=== PATIENT | female | born 2000 | race Caucasian/White ===

== ENCOUNTER 2024-07-14 04:00 | Emergency (ER) | payer MEDICAID, SELFPAY ==
[2024-07-14 04:01] VITALS: BMI 24.5
[2024-07-14 04:08] VITALS: BP 134/78; PULSE 116; RESP 18; TEMP 36.6; O2SAT 96
--- NOTE | 2024-07-14 04:15 | XR_ITS ---
EXAMINATION: Ankle, right 3 views . Technique: Ankle AP, oblique, lateral 3 views Date and time of exam: July 14, 2024 0422 hrs. Indications: Ground-level fall today. Findings: No fracture or ankle dislocation No foreign body Impression: No fracture or dislocation
--- NOTE | 2024-07-14 04:15 | XR_ITS ---
Examination: Right knee 4 views Technique: AP oblique lateral axial right knee 4 views Exam date and time: July 15, 2023 0422 hrs. Indications: Ground-level fall today. Findings: No acute fracture No foreign body Minimal chronic lateral subluxation of the patella Impression: No acute fracture
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
[2024-07-14] MEDS: IBUPROFEN TAB 400 MG TABLET 800 MG PO (04:34)
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
== END 2024-07-14 05:21 | disposition home or self-care (01) ==
PROVIDERS: Emergency Provider Emergency Medicine; PCP Family Medicine
DX: S93.401A Sprain of unspecified ligament of right ankle, initial encounter (principal); M25.561 Pain in right knee; X50.9XXA Other and unspecified overexertion or strenuous movements or postures, initial encounter
CPT/HCPCS: 73562; 73610; 99283; A9270

== ENCOUNTER 2025-02-23 19:01 | Emergency (ER) | payer MEDICAID, SELFPAY ==
[2025-02-23 19:02] VITALS: BMI 23.6
--- NOTE | 2025-02-23 19:08 | XR_ITS ---
Examination: Complete OB ultrasound, less than 14 weeks, transabdominal Date and time of exam: February 23, 2025, 1955 hours INDICATION: Vaginal bleeding and pelvic pain beginning 3 days ago Technique: Obstetrical ultrasound images less than 14 weeks performed via transabdominal imaging Findings: Uterus 7.8 cm no uterine mass or intrauterine gestation Endometrial stripe 1.3 cm Right ovary 2.7 cm arterial flow Left ovary 3.6 cm arterial flow 21 mm x 14 mm cyst IMPRESSION: No uterine mass or intrauterine gestation Left ovarian cyst 21 x 13 x 14 mm
[2025-02-23] MEDS: ACETAMINOPHEN 325 MG TABLET 650 MG PO (19:26)
[2025-02-23 19:50] VITALS: BP 124/79; PULSE 97; RESP 18; TEMP 37.1; O2SAT 99
[2025-02-23 20:10] LABS: Collection Type, Urine Clean Catch
[2025-02-23 20:22] LABS: Amorphous Crystals,Urine Present (Absent); Bacteria,Urine Rare; Bilirubin,Urine Negative (Negative); Blood,Urine Negative (Negative); Clarity,Urine Clear (Clear/Hazy); Color,Urine Lt-Yellow (Lt Yel-Yel); Culture Indicated,Urine Not Indicated; Glucose, Urine Negative (Negative); Ketones,Urine Negative (Negative); Leukocyte Esterase,Urine Negative (Negative); Nitrite,Urine Negative (Negative); PH,Urine 6.5 (5.0-7.0); Protein,Urine Negative (Neg - Trace); RBC,Urine 5 /hpf (0-3); Specific Gravity,Urine 1.019 (1.001-1.035); Squamous Epithelial Cell,Urine 7 /hpf (0-5); Urobilinogen,Urine Negative mg/dL (0.0-1.0); WBC,Urine < 1 /hpf (0-5)
--- NOTE | 2025-02-23 20:34 | PD.EDFMALE ---
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 Denies going through a full pad, vomiting, diarrhea, dizziness, urinary symptoms. Related Data Home Medications ?Medication ?Instructions ?Recorded ?Confirmed bupropion HCl 100 mg tablet,12 hr 100 mg PO QDAY 06/16/19 12/26/23 sustained-release (Wellbutrin SR) vit no.95-ferrous 1 tab PO QDAY 12/12/23 12/26/23 fumarate 28 mg-folic acid 800 mcg tablet () Previous Rx's ?Medication ?Instructions ?Recorded ibuprofen 800 mg tablet 800 mg PO TID PRN fever or pain 07/14/24 #30 tabs Allergies Allergy/AdvReac Type Severity Reaction Status Date / Time amoxicillin Allergy Severe Hives Verified 02/23/25 19:04 bee pollen Allergy Severe Swelling Verified 02/23/25 19:04 of Lip/Tongue/Throat onion Allergy Severe Swelling Verified 02/23/25 19:04 of Lip/Tongue/Throat promethazine Allergy Severe Swelling Verified 02/23/25 19:04 of Lip/Tongue/Throat ED Exam Narrative Physical exam: Constitutional: Patient alert and oriented. Well appearing. No acute distress. Not toxic appearing. Head: Normocephalic, atraumatic. Eyes: Periorbital regions bilaterally normal to inspection. Conjunctiva clear bilaterally. Sclera anicteric bilaterally. Pupils equal, round, reactive to light bilaterally. Extraocular movements intact bilaterally. Mouth/Throat: Mucous membranes moist. No stridor or muffled voice. No trismus. Handling secretions without difficulty. Airway widely patent. Neck: Supple. Trachea midline. No JVD. No nuchal rigidity. Normal range of motion. Respiratory: Normal effort. No accessory muscle use or respiratory distress. Lungs clear to auscultation bilaterally without rhonchi, wheezes, or crackles. Cardiovascular: RRR. Normal S1/S2. No murmurs or rubs. Radial pulses intact bilaterally. Abdomen: Soft. Non-distended. Non-tender throughout. No pulsatile mass. No guarding or rebound. Negative Escobar?s sign. Negative McBurney?s point tenderness. Negative Rovsing?s. Back: No midline tenderness or step-offs. No CVA tenderness to palpation bilaterally. Upper Extremities: No gross deformities. Lower Extremities: No gross deformities. No edema or calf tenderness. Neuro: Speech normal. No gross motor or sensory deficits to upper or lower extremities bilaterally. GCS 15. CN II?XII grossly intact. Skin: Warm, dry, normal color. Psych: Normal affect. Cooperative. Normal insight. : Deferred Course Quality Measures none Orders Category Date Time Status Administer Rhogam NOW Care 02/23/25 22:15 Active US OB <= 14 weeks fetus Stat Exams 02/23/25 19:08 Completed Beta HCG,Quantitative Stat Lab 02/23/25 20:21 Completed CBC Stat Lab 02/23/25 20:21 Completed CMP [Comprehensive Metabolic Panel] Stat Lab 02/23/25 20:21 Completed RHOGAM [Rho(D) Immune Globulin] Stat Lab 02/23/25 20:21 Results Type and Screen Stat Lab 02/23/25 20:21 Results UA, C/S IF [Urinalysis, C/S if Indicated] Stat Lab 02/23/25 20:00 Completed Acetaminophen Tab [Tylenol Tab] Med 02/23/25 19:08 Discontinued 650 mg PO X1 ONE Vital Signs Vital signs: Vital Signs Temperature 98.8 F 02/23/25 19:50 Pulse Rate 97 02/23/25 19:50 Respiratory Rate 18 02/23/25 19:50 Blood Pressure 124/79 02/23/25 19:50 Pulse Oximetry (%) 99 02/23/25 19:50 Oxygen Delivery Method Room Air 02/23/25 19:50 Urogenital - Female MDM Narrative MDM Narrative:: MDM: This patient is in the first trimester of her and the cause of the symptoms is uncertain. After a careful history, physical exam, and evaluation of the HCG, CBC, and ultrasound, the differential diagnoses include an early with the risk of a miscarriage, abnormal , or ectopic . Pt is O negative as well therefor rhogam was ordered. Additionally urine noted rare bacteria, however pt eloped prior to re-assesment, U culture pending. Patient data External records reviewed:: [facility] previous records Clinical information provided by:: none Social determinants that could affect healthcare access:: none Patient has the following chronic illnesses:: As noted How is presenting disease/condition affected by chronic disease/condition?: uneffected by Evaluation data The following diagnostics were reviewed and interpreted by me:: lab results and radiology exam(s) Lab and/or radiology exams considered but not ordered:: Labs and radiology considered, but not ordered as they were not clinically indicated at this time. Interpretation Summary: hCG level 1279 which is prior to the discriminatory zone. UA additionally with rare bacteria amorphous crystals 5 RBCs 7 squamous cells concerning for asymptomatic bacteriuria in pt will likely require U culture to confirm. Otherwise no severe metabolic or electrolyte abnormality. Ultrasound without confirmed intrauterine , left ovarian cyst of 2 cm. O negative, pt requires rhogam. Medications / Prescriptions Medications or Prescriptions considered but not ordered:: I considered prescription management (both outpatient prescriptions AND drug treatment in the ER) and decided that this was necessary and was prescribed as charted. Medication administrations:: Medication Administration History Discontinued Medications Acetaminophen (Acetaminophen 325 Mg Tablet) 650 mg PO X1 ONE Stop: 02/23/25 19:09 Last Admin: 02/23/25 19:26 Dose: 650 mg Documented By: SAUD none Consultations Consultation(s) initiated? (list below): No Diagnosis Urogenital Female Differential Diagnosis: urinary tract infection, ovarian cyst and other Most likely diagnosis given after review of the tests above:: As noted Admission Indicated Admission indicated?: not indicated Explain why admission is indicated or not indicated:: Escalation of care including admission/observation considered but I decided to discharge because based on the overall clinical presentation, and after consideration of the patient's course in the emergency department and plan for outpatient management, I believe that neither further observation nor inpatient care is required at this time. Admission Request Was there a request for admission?: No Disposition Plan Disposition Plan: other (specify) Discharge Plan Plan Patient Disposition: HOME (Self Care) Discharge Disposition comment: Eloped Patient condition on transfer: Stable Prescriptions/Referrals Prescriptions/Med Rec: No Action bupropion HCl [Wellbutrin SR] 100 mg Tablet Sustained-Release 12 Hr 100 mg PO QDAY PNV no.95-ferrous fumarate-FA [] 28 mg iron- 800 mcg tablet 1 tab PO QDAY Patient Comments: TAKE 1 TABLET BY MOUTH EVERY DAY FOR 90 DAYS ibuprofen 800 mg tablet 800 mg PO TID PRN (Reason: fever or pain) Qty: 30 0RF Referrals: No Primary/Family,Physician [Primary Care Provider] - In 1 week Emy Centeno MD [Physician, [employer]] - In 1 week Problem List Clinical Impression: Vaginal bleeding in Patient/Caregiver Discharge Instructions Education Materials: Bleeding During Early Additional Instructions: Follow up with your primary medical doctor and your [employer] doctor within 48 hours. Return to the Emergency Room immediately for any new, worsening, continuing symptoms or any concerns at all. Return to the Emergency Room within 48 hours if you are unable to follow up with your primary medical doctor and your [employer] doctor within 48 hours. Print Language: Irish Stand Alone Forms: Carlita Award Info., Patient Portal Info Letter PA/JACOBO Supervising Physician PA/JACOBO Supervising Physician: Dr. Jarrett
[2025-02-23 20:37] LABS: Basophils # (Auto) 0.0 Thou/mm3 (0.0-0.2); Basophils % (Auto) 0 % (0-2.5); Eosinophils # (Auto) 0.2 Thou/mm3 (0.0-0.5); Eosinophils % (Auto) 2 % (0-10); Hematocrit 40.5 % (36.0-46.0); Hemoglobin 13.4 g/dL (12.0-16.0); Immature Granulocytes Auto 0.03 Thou/mm3 (0.00-0.00); Lymphocytes # (Auto) 2.7 Thou/mm3 (1.0-4.8); Lymphocytes % (Auto) 25 % (10-50); Mean Corpuscular HGB Conc 33.1 g/dl (31.0-37.0); Mean Corpuscular Hemoglobin 28.7 pg (25.0-35.0); Mean Corpuscular Volume 87 fL (80-100); Monocytes # (Auto) 0.8 Thou/mm3 (0.0-0.8); Monocytes % (Auto) 8 % (0-12); Neutrophils # (Auto) 7.2 Thou/mm3 (1.8-7.7); Neutrophils % (Auto) 65 % (37-80); Nucleated Red Blood Cell # 0.00 Thou/mm3 (0.00-0.00); Nucleated Red Blood Cell % 0 /100 WBC (0); Platelet Count 197 Thou/mm3 (140-440); RDW Standard Deviation 40.9 fL (36.4-46.3); Red Blood Count 4.67 Miln/mm3 (4.00-5.20); White Blood Count 11.0 Thou/mm3 (3.6-11.0)
[2025-02-23 21:27] LABS: Alanine Aminotransferase 11 U/L (10-49); Albumin, Serum 4.7 gm/dL (3.5-5.0); Albumin/Globulin Ratio 1.8 (1.2-2.2); Alkaline Phosphatase 98 U/L (46-116); Anion Gap 10 (7-16); Aspartate Amino Transferase 16 U/L (0-34); BUN/Creatinine Ratio 9 Ratio (12-20); Beta HCG,Quantitative 1279 mIU/mL (<5.0); Bilirubin,Total 0.2 mg/dL (0.3-1.2); Blood Urea Nitrogen 6 mg/dL (9-23); Calcium 9.3 mg/dL (8.3-10.6); Calcium (Corrected) 9.3 mg/dL (8.5-10.1); Carbon Dioxide 23.6 mMol/L (20.0-31.0); Chloride 106 mMol/L (98-107); Creatinine (Component) 0.7 mg/dL (0.6-1.3); Estimated Creatinine Clearance 108.9 mL/min (>60); Globulin 2.6 gm/dL (2.3-3.5); Glucose 97 mg/dL (74-106); Osmolality,Calculated 277 (275-295); Potassium 3.8 mMol/L (3.4-5.1); Sodium 140 mMol/L (136-145); Total Protein 7.3 gm/dL (5.7-8.2); eGFR > 60 See Note
--- NOTE | 2025-02-23 23:09 | PC.NURSE ---
N/A FROM [facility] FOR PROVIDER
--- NOTE | 2025-02-23 23:15 | PC.NURSE ---
[facility]
--- NOTE | 2025-02-23 23:24 | PC.NURSE ---
N/A FROM [facility]...JONNATHAN
== END 2025-02-23 23:25 | disposition home or self-care (01) ==
PROVIDERS: Physician Assistant; Emergency Provider Emergency Medicine
DX: O20.9 Hemorrhage in early pregnancy, unspecified (principal); Z3A.14 14 weeks gestation of pregnancy
CPT/HCPCS: 36415; 76801; 80053; 81001; 84702; 85025; 86850; 86900; 86901; 99283; A9270

== ENCOUNTER 2025-03-06 11:13 | Emergency (ER) | payer MEDICAID, SELFPAY ==
[2025-03-06 11:15] VITALS: BP 109/62; PULSE 76; RESP 17; TEMP 36.8; O2SAT 96
[2025-03-06 11:20] VITALS: PULSE 78; RESP 16; O2SAT 98; BMI 23.6
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
--- NOTE | 2025-03-06 11:53 | PD.EDPREG ---
ED OB Contraction Preg RMI/HPI General Chief complaint: Abdominal Pain Stated complaint: ABD PAIN Time Seen by Provider: 03/06/25 11:50 Source: patient Arrival date/time: 03/06/25 11:13 24-year-old female with no known medical history presents to the emergency room with a chief complaint of bilateral lower abdominal pain x 2 days. Patient states she was kicked in the stomach by a soccer ball yesterday afternoon. Patient is currently 6 weeks . Patient denies any vaginal bleeding Mode of arrival: ambulatory Limitations: no limitations Related Data Home Medications ?Medication ?Instructions ?Recorded ?Confirmed bupropion HCl 100 mg tablet,12 hr 100 mg PO QDAY 06/16/19 12/26/23 sustained-release (Wellbutrin SR) vit no.95-ferrous 1 tab PO QDAY 12/12/23 12/26/23 fumarate 28 mg-folic acid 800 mcg tablet () Previous Rx's ?Medication ?Instructions ?Recorded ibuprofen 800 mg tablet 800 mg PO TID PRN fever or pain 07/14/24 #30 tabs Allergies Allergy/AdvReac Type Severity Reaction Status Date / Time amoxicillin Allergy Severe Hives Verified 03/06/25 11:24 bee pollen Allergy Severe Swelling Verified 03/06/25 11:24 of Lip/Tongue/Throat onion Allergy Severe Swelling Verified 03/06/25 11:24 of Lip/Tongue/Throat promethazine Allergy Severe Swelling Verified 03/06/25 11:24 of Lip/Tongue/Throat Review of Systems Review of Systems Systems Reviewed: All systems reviewed, normal except as documented Constitutional Constitutional: Reports system reviewed and no additional complaints, except as documented, Denies fatigue, Denies fever(s), Denies headache(s) and Denies weakness Eyes Eyes: Reports system reviewed and no additional complaints, except as documented, Denies blurry vision and Denies change in vision ENT Ears, Nose, Mouth, and Throat: Reports system reviewed and no additional complaints, except as documented, Denies otalgia, Denies headache(s), Denies nasal congestion, Denies throat swelling and Denies vertigo Cardiovascular Cardiovascular: Reports system reviewed and no additional complaints, except as documented, Denies chest pain, Denies dyspnea and Denies dyspnea on exertion Respiratory Respiratory: Reports system reviewed and no additional complaints, except as documented, Denies chest congestion, Denies cough, Denies dyspnea, Denies dyspnea on exertion and Denies wheezing Gastrointestinal Gastrointestinal: Reports system reviewed and no additional complaints, except as documented, Reports abdominal pain, Reports cramping, Denies nausea and Denies vomiting Genitourinary Genitourinary: Reports system reviewed and no additional complaints, except as documented Musculoskeletal Musculoskeletal: Reports system reviewed and no additional complaints, except as documented and Denies back pain Integumentary/Breasts Skin/Breast: Reports system reviewed and no additional complaints, except as documented and Denies wounds Neurologic Neurologic: Reports system reviewed and no additional complaints, except as documented, Denies confusion, Denies headache(s), Denies lack of coordination, Denies vertigo and Denies weakness Psychiatric Psychiatric: Reports system reviewed and no additional complaints, except as documented, Denies anxiety, Denies confusion, Denies depression, Denies paranoia, Denies suicidal ideation and Denies tactile hallucinations Endocrine Endocrine: Reports system reviewed and no additional complaints, except as documented and Denies fatigue Hematologic/Lymphatic Hematologic/Lymphatic: Reports system reviewed and no additional complaints, except as documented and Denies lymphadenopathy Allergic/Immunologic Allergic/Immunologic: Reports system reviewed and no additional complaints, except as documented, Denies throat swelling, Denies urticaria and Denies wheezing ED Exam General Limitations: Present no limitations General appearance: Present alert and in no apparent distress Head Head exam: Present atraumatic Eye Eye exam: Present normal appearance, PERRL and EOMI ENT ENT exam: Present normal exam, normal oropharynx and mucous membranes moist Neck Neck exam: Present normal inspection, full ROM and trachea midline Chest Chest inspection: Present normal inspection and symmetric chest wall rise Respiratory Respiratory exam: Present normal lung sounds bilaterally Cardiovascular Cardiovascular exam: Present regular rate, normal rhythm and normal heart sounds Abdominal Exam Abdominal exam: Present soft, tenderness and normal bowel sounds Abdominal tenderness: Present RLQ, LLQ and mild Extremities Exam Extremities exam: Present normal inspection and full ROM Back Exam Back exam: Present normal inspection and full ROM Neurological Exam Neurological exam: Present alert, oriented X3 and CN II-XII intact Psychiatric Psychiatric exam: Present normal affect and normal mood Skin Skin exam: Present warm, dry, intact and normal color Course Orders Category Date Time Status US OB <= 14 weeks fetus Stat Exams 03/06/25 11:52 Ordered ABO/RH Type Stat Lab 03/06/25 11:52 Ordered Beta HCG,Quantitative Stat Lab 03/06/25 11:52 Ordered CBC Stat Lab 03/06/25 11:52 Ordered CMP [Comprehensive Metabolic Panel] Stat Lab 03/06/25 11:52 Ordered UA [Urinalysis] Stat Lab 03/06/25 11:52 Ordered Vital Signs Vital signs: Vital Signs Temperature 98.3 F 03/06/25 11:15 Pulse Rate 76 03/06/25 11:15 Respiratory Rate 17 03/06/25 11:15 Blood Pressure 109/62 03/06/25 11:15 Pulse Oximetry (%) 96 03/06/25 11:15 Oxygen Delivery Method Room Air 03/06/25 11:15 OB/Uterine Contractions MDM Narrative MDM Narrative:: 24-year-old female with no known medical history presents to the emergency room with a chief complaint of bilateral lower abdominal pain x 2 days. Patient states she was kicked in the stomach by a soccer ball yesterday afternoon. Patient is currently 6 weeks . Patient denies any vaginal bleeding Patient data External records reviewed:: [facility] previous records Clinical information provided by:: patient Social determinants that could affect healthcare access:: none Patient has the following chronic illnesses:: No chronic illness How is presenting disease/condition affected by chronic disease/condition?: no chronic disease Evaluation data The following diagnostics were reviewed and interpreted by me:: lab results and radiology exam(s) Lab and/or radiology exams considered but not ordered:: Labs and radiology exams considered and ordered Interpretation Summary: Ultrasound OB- Medications / Prescriptions Medications or Prescriptions considered but not ordered:: No medication given Medication administrations:: No medication given Consultations Consultation(s) initiated? (list below): No Diagnosis OB Contractions Differential Diagnosis: other Most likely diagnosis given after review of the tests above:: Ectopic /abdominal pain/spontaneous Admission Indicated Admission indicated?: not indicated Admission Request Was there a request for admission?: No Disposition Plan Disposition Plan: Discharge Discharge Attestation Discharge Attestation: The patient and all family members were given an opportunity to ask questions and understood the discharge instructions. Discharge instructions specifically effects, indications for sooner follow up or return to the emergency department, and the expected course of current diagnosis. Patient condition: Stable Discharge Plan Prescriptions/Referrals Prescriptions/Med Rec: No Action bupropion HCl [Wellbutrin SR] 100 mg Tablet Sustained-Release 12 Hr 100 mg PO QDAY PNV no.95-ferrous fumarate-FA [] 28 mg iron- 800 mcg tablet 1 tab PO QDAY Patient Comments: TAKE 1 TABLET BY MOUTH EVERY DAY FOR 90 DAYS ibuprofen 800 mg tablet 800 mg PO TID PRN (Reason: fever or pain) Qty: 30 0RF Patient/Caregiver Discharge Instructions Print Language: Japanese
[2025-03-06 12:52] LABS: Basophils # (Auto) 0.0 Thou/mm3 (0.0-0.2); Basophils % (Auto) 1 % (0-2.5); Eosinophils # (Auto) 0.1 Thou/mm3 (0.0-0.5); Eosinophils % (Auto) 2 % (0-10); Hematocrit 40.6 % (36.0-46.0); Hemoglobin 13.4 g/dL (12.0-16.0); Immature Granulocytes Auto 0.03 Thou/mm3 (0.00-0.00); Lymphocytes # (Auto) 2.0 Thou/mm3 (1.0-4.8); Lymphocytes % (Auto) 29 % (10-50); Mean Corpuscular HGB Conc 33.0 g/dl (31.0-37.0); Mean Corpuscular Hemoglobin 28.8 pg (25.0-35.0); Mean Corpuscular Volume 87 fL (80-100); Monocytes # (Auto) 0.6 Thou/mm3 (0.0-0.8); Monocytes % (Auto) 8 % (0-12); Neutrophils # (Auto) 4.2 Thou/mm3 (1.8-7.7); Neutrophils % (Auto) 60 % (37-80); Nucleated Red Blood Cell # 0.00 Thou/mm3 (0.00-0.00); Nucleated Red Blood Cell % 0 /100 WBC (0); Platelet Count 227 Thou/mm3 (140-440); RDW Standard Deviation 42.2 fL (36.4-46.3); Red Blood Count 4.65 Miln/mm3 (4.00-5.20); White Blood Count 7.0 Thou/mm3 (3.6-11.0)
[2025-03-06 13:00] LABS: Collection Type, Urine Clean Catch
[2025-03-06 13:17] LABS: Bilirubin,Urine Negative (Negative); Blood,Urine Negative (Negative); Clarity,Urine Clear (Clear/Hazy); Color,Urine Lt-Yellow (Lt Yel-Yel); Glucose, Urine Negative (Negative); Ketones,Urine Negative (Negative); Leukocyte Esterase,Urine Negative (Negative); Nitrite,Urine Negative (Negative); PH,Urine 6.5 (5.0-7.0); Protein,Urine Negative (Neg - Trace); RBC,Urine 3 /hpf (0-3); Specific Gravity,Urine 1.027 (1.001-1.035); Squamous Epithelial Cell,Urine 7 /hpf (0-5); Urobilinogen,Urine Negative mg/dL (0.0-1.0); WBC,Urine 1 /hpf (0-5)
--- NOTE | 2025-03-06 13:17 | PD.EDRME ---
Rapid Medical Screening [facility] Arrival date/time: 03/06/25 11:13 24-year-old female with no known medical history presents to the emergency room with a chief complaint of lower abdominal pain x 2 days. Patient states she was kicked with a soccer ball accidentally yesterday afternoon. Patient denies any vaginal bleeding Chief Complaint: Abdominal Pain Time Seen by Provider: 03/06/25 11:50 Vital signs: Vital Signs Temperature 98.3 F 03/06/25 11:15 Pulse Rate 76 03/06/25 11:15 Respiratory Rate 17 03/06/25 11:15 Blood Pressure 109/62 03/06/25 11:15 Pulse Oximetry (%) 96 03/06/25 11:15 Oxygen Delivery Method Room Air 03/06/25 11:15 Vital signs reviewed by provider: Yes Exam: 8 out of 10 tenderness to the lower abdominal area bilaterally. Patient has active bowel sounds Patient is clear bilateral lung sounds. There is no vaginal bleeding there is no discharge Clinical Impression: Spontaneous /ectopic /threatened
[2025-03-06 13:33] LABS: Alanine Aminotransferase 10 U/L (10-49); Albumin, Serum 4.4 gm/dL (3.5-5.0); Albumin/Globulin Ratio 2.0 (1.2-2.2); Alkaline Phosphatase 74 U/L (46-116); Anion Gap 10 (7-16); Aspartate Amino Transferase 16 U/L (0-34); BUN/Creatinine Ratio 8 Ratio (12-20); Bilirubin,Total 0.5 mg/dL (0.3-1.2); Blood Urea Nitrogen < 5 mg/dL (9-23); Calcium 8.8 mg/dL (8.3-10.6); Calcium (Corrected) 8.8 mg/dL (8.5-10.1); Carbon Dioxide 21.0 mMol/L (20.0-31.0); Chloride 106 mMol/L (98-107); Creatinine (Component) 0.6 mg/dL (0.6-1.3); Estimated Creatinine Clearance 127.0 mL/min (>60); Globulin 2.2 gm/dL (2.3-3.5); Glucose 84 mg/dL (74-106); Osmolality,Calculated 270 (275-295); Potassium 4.2 mMol/L (3.4-5.1); Sodium 137 mMol/L (136-145); Total Protein 6.6 gm/dL (5.7-8.2); eGFR > 60 See Note
--- NOTE | 2025-03-06 14:15 | PC.NURSE ---
Addendum entered by Supriya Owusu RN 03/06/25 14:44: @1443 - PT CALLED FROM ED [facility] ED ENTRANCE FOR LAST CALL. NO ANSWER AT THIS TIME. PT ELOPED. Addendum entered by Supriya Owusu RN 03/06/25 14:33: @1432 - PT CALLED FROM ED [facility] ED ENTRANCE AGAIN. NO ANSWER AT THIS TIME. Original Note: @1415 - PT CALLED FROM ED [facility] ED ENTRANCE. NO ANSWER AT THIS TIME.
[2025-03-06 14:16] LABS: Beta HCG,Quantitative 42112 mIU/mL (<5.0)
== END 2025-03-06 14:44 | disposition left against medical advice (07) ==
PROVIDERS: Nurse Practitioner Family; Emergency Provider Emergency Medicine; PCP Family Medicine
DX: R10.30 Lower abdominal pain, unspecified (principal); Z53.29 Procedure and treatment not carried out because of patient's decision for other reasons
CPT/HCPCS: 36415; 76801; 80053; 81001; 84702; 85025; 86900; 86901; 99282